=== PATIENT | female | born 1970 | race Caucasian/White ===

== ENCOUNTER 2016-09-24 12:19 | Emergency (ER) | payer MEDICAID ==
[~2016-09-24] VITALS: Wt 63.5 kg
[~2016-09-24 12:19] MED LIST: GLYB2.5T; INSU100V14; NPH,3INS5; PREN1TAB49; SS
[2016-09-24] MEDS ORDERED: ONDANSETRON (ODT) 4 MG TAB ODT STA (12:55)
--- NOTE | 2016-09-24 12:58 | ERD ---
ER Documentation Chief Complaint Date/Time DATE: 09/24/16 TIME: 12:57 Chief Complaint ruq pain HPI 46-year-old female with a history of type 2 diabetes comes emergency room with 3 day history of right upper quadrant abdominal pain that radiates from epigastrium. She states it is on and off, pressure-like, worse at nighttime after dinner. She has had some nonbloody nonbilious episodes of nausea vomiting for the past 2 days. She denies fevers or chills. ROS All systems reviewed and are negative except as per history of present illness. Medications Home Meds Active Scripts Omeprazole* (Omeprazole*) 20 Mg Capsule.dr, 20 MG PO DAILY, #30 Prov:LIBBY SUNG PA-C 09/24/16 Ranitidine Hcl* (Zantac*) 150 Mg Tablet, 150 MG PO BID Y for EPIGASTRIC PAIN, # 30 TAB Prov:LIBBY SUNG PA-C 09/24/16 Reported Medications Nph, Human Insulin Isophane (Humulin N) 100 Units/Ml Pen 02/04/10 Insulin Regular, Human (Humulin R) 100 Units/Ml Vial 02/04/10 Nph, Human Insulin Isophane (Humulin N) 100 Units/Ml Pen 02/04/10 Insulin Human Regular (Novolin-R U-100) 100 Unit/Ml Soln 02/04/10 Glyburide* (Diabeta*) 2.5 Mg Tablet 02/04/10 Glyburide* (Diabeta*) 2.5 Mg Tablet 02/04/10 Vits W-Ca,Fe,Fa(<1MG) () 1 Tab Tablet 02/04/10 Allergies Allergies: Coded Allergies: No Known Drug Allergy (Verified Allergy, Unknown, 10/05/13) PMhx/Soc Hx Alcohol Use: No Hx Substance Use: No Hx Tobacco Use: No Physical Exam Vitals Vital Signs Date Time Temp Pulse Resp B/P Pulse Ox O2 Delivery O2 Flow Rate FiO2 09/24/16 12:27 98.9 87 20 156/79 99 Physical Exam General: Well-developed, well-nourished. The patient appears in no acute distress. HEENT: Head is normocephalic, atraumatic. No scleral icterus. Neck: Supple. Nontender. Lungs: Clear to auscultation. Normal air movement. Heart: Regular rate and rhythm. S1 and S2 are normal. No murmurs, gallops, or rubs. Abdomen: Soft, 1+ tenderness in the epigastric region, there is mild tenderness in right upper quadrant, no Wisdom sign nondistended. Bowel sounds are normoactive. No hepatosplenomegaly. No tenderness to McBurney's point. Extremities: No clubbing or cyanosis. Normal pulses. Moving extremities x 4. No weakness. Neurologic: Alert and oriented 3. No focal deficits. Skin: Normal turgor. No rash or lesions. Result Diagram: 09/24/16 1308 09/24/16 1308 Results 24 hrs Laboratory Tests Test 09/24/16 13:05 09/24/16 13:08 Urine Color LT. YELLOW Urine Clarity CLEAR Urine pH 5.5 Urine Specific [place] 1.010 Urine Ketones NEGATIVE Urine Nitrite NEGATIVE Urine Bilirubin NEGATIVE Urine Urobilinogen 0.2 E.U./dL Urine Leukocyte Esterase NEGATIVE Urine Hemoglobin NEGATIVE Urine Glucose >=1000% Urine Total Protein NEGATIVE White Blood Count 10.910^3/ul Red Blood Count 4.4110^6/ul Hemoglobin 12.0g/dl Hematocrit 36.8% Mean Corpuscular Volume 83.4fl Mean Corpuscular Hemoglobin 27.2pg Mean Corpuscular Hemoglobin Concent 32.6g/dl Red Cell Distribution Width 14.2% Platelet Count 92132^3/UL Mean Platelet Volume 10.7fl Neutrophils % 64.0% Lymphocytes % 28.3% Monocytes % 6.0% Eosinophils % 0.7% Basophils % 0.5% Nucleated Red Blood Cells % 0.0/100WBC Neutrophils # 7.010^3/ul Lymphocytes # 3.110^3/ul Monocytes # 0.710^3/ul Eosinophils # 0.110^3/ul Basophils # 0.110^3/ul Nucleated Red Blood Cells # 0.010^3/ul Sodium Level 138mmol/L Potassium Level 4.0mmol/L Chloride Level 102mmol/L Carbon Dioxide Level 24mmol/L Anion Gap 16 Blood Urea Nitrogen 11mg/dl Creatinine 0.50mg/dl Glucose Level 298mg/dl Calcium Level 9.4mg/dl Total Bilirubin 0.2mg/dl Direct Bilirubin 0.00mg/dl Indirect Bilirubin 0.2mg/dl Aspartate Amino Transf (AST/SGOT) 20IU/L Alanine Aminotransferase (ALT/SGPT) 37IU/L Alkaline Phosphatase 91IU/L Total Protein 7.8g/dl Albumin 4.9g/dl Globulin 2.90g/dl Albumin/Globulin Ratio 1.68 Lipase 62U/L Current Medications Medications (Trade) Dose Ordered Sig/Shawn Route PRN Reason Start Time Stop Time Status Last Admin Dose Admin Acetaminophen/ Hydrocodone Bitart (Milton (5/325)) 1 tab ONCE ONCE PO 09/24/16 13:00 09/24/16 13:01 DC 09/24/16 13:46 Ondansetron HCl (Zofran Odt) 4 mg ONCE STAT ODT 09/24/16 12:55 09/24/16 12:57 DC 09/24/16 13:46 DIAGNOSTIC IMAGING REPORT Patient: MARTINEZ MONTEMAYOR : 1970 Age: 46 Sex: F MR #: [id number] DOS: 09/24/16 1255 Ordering MD: LIBBY SUNG PA-C Location: [facility] Room/Bed: PROCEDURE: US Abdomen (Right upper quadrant) CLINICAL INDICATION: Abdominal pain. TECHNIQUE: Multiple real-time longitudinal and transverse images were acquired of the patient's right upper quadrant utilizing a curved array transducer. COMPARISON: CT, 10/05/2013. FINDINGS: Liver demonstrates diffuse increase in parenchymal echogenicity. No focal liver mass. Portal vein demonstrates hepatopetal flow. Gallbladder is normal. There are no gallstones. There is no gallbladder wall thickening or pericholecystic fluid. No intra- or extrahepatic biliary dilation. Pancreas is partially visualized and grossly unremarkable. Right kidney demonstrates no hydronephrosis or nephrolithiasis. No ascites. Proximal aorta and IVC are unremarkable. MEASUREMENTS: Liver: 16.6 cm Common Duct: 0.3 cm Right Kidney: 10.6 cm IMPRESSION: 1. Hepatic steatosis, at least moderate in grade. 2. Otherwise, unremarkable examination. RPTAT: EE .Gregory Hughes MD, Date Time Electronically viewed and signed by .Gregory Hughes MD, on 09/24/2016 13:52 Procedures/MDM ED course: Labs and urine obtained. She was medicated with Milton and Zofran. 46 yo female comes in with epigastric abdominal pain, 5 days. She describes as epigastric pain as pressure-like, radiates to right upper quadrant. No evidence of acute choledocholithiasis, cholecystitis, acute pancreatitis. Abdominal ultrasound was performed, there is evidence of hepatic steatosis however no evidence of gallstones, acute cholecystitis. Lipase is normal, there is no transaminitis. Urine was also normal. She is given [place] and Zofran emergency department serial abdominal examinations were done and the patient is resting comfortably. She is to follow-up with her primary care doctor regarding steatosis, dietary changes were advised. Patient's blood pressure was elevated (>120/80) but appears stable without evidence of hypertension emergency or urgency. The patient was counseled about the risks of hypertension and urged to pursue outpatient monitoring and therapy within a week with their primary care physician. Departure Diagnosis: Primary Impression: Abdominal pain Additional Impression: Hepatic steatosis Condition: Good LIBBY SUNG PA-C Sep 24, 2016 12:58
[2016-09-24] MEDS ORDERED: HYDROCODONE/APAP (5/325) TAB PO ONE (13:00)
[2016-09-24 13:20] LABS: ADD SCAN DIFF NO
[2016-09-24 13:26] LABS: BASOPHIL # 0.1 10^3/ul (0.0-0.1); BASOPHILS % 0.5 % (0.0-2.0); EOSINOPHILS # 0.1 10^3/ul (0.0-0.5); EOSINOPHILS % 0.7 % (0.0-7.0); HEMATOCRIT 36.8 % (37.0-47.0); LYMPHOCYTES # 3.1 10^3/ul (0.8-2.9); LYMPHOCYTES % 28.3 % (15.0-51.0); MEAN CORPUSCULAR HEMOGLOBIN 27.2 pg (29.0-33.0); MEAN CORPUSCULAR HGB CONC 32.6 g/dl (32.0-37.0); MEAN CORPUSCULAR VOLUME 83.4 fl (82.0-101.0); MEAN PLATELET VOLUME 10.7 fl (7.4-10.4); MONOCYTE # 0.7 10^3/ul (0.3-0.9); PLATELET COUNT 364 10^3/UL (140-415); RED BLOOD COUNT 4.41 10^6/ul (4.20-5.40); RED CELL DISTRIBUTION WIDTH 14.2 % (11.5-14.5); WHITE BLOOD COUNT 10.9 10^3/ul (4.8-10.8)
[2016-09-24 13:29] LABS: ADD UMIC NO; URINE BILIRUBIN (Dip) NEGATIVE (NEGATIVE); URINE BLOOD (Dip) NEGATIVE (NEGATIVE); URINE COLOR LT. YELLOW (YELLOW); URINE GLUCOSE (Dip) >=1000 % (NEGATIVE); URINE KETONES (Dip) NEGATIVE (NEGATIVE); URINE LEUKOCYTE ESTERASE (Dip) NEGATIVE (NEGATIVE); URINE NITRITE (Dip) NEGATIVE (NEGATIVE); URINE TOTAL PROTEIN (Dip) NEGATIVE (NEGATIVE); URINE UROBILINOGEN (Dip) 0.2 E.U./dL (0.1-1.0)
--- NOTE | 2016-09-24 13:47 | RADRPT ---
PROCEDURE: US Abdomen (Right upper quadrant) CLINICAL INDICATION: Abdominal pain. TECHNIQUE: Multiple real-time longitudinal and transverse images were acquired of the patient's ri ght upper quadrant utilizing a curved array transducer. COMPARISON: CT, 10/05/2013. FINDINGS: Liver demonstrates diffuse increase in parenchymal echogenicity. No focal liver mass. Portal vein demonstrates hepatopetal flow. Gallbladder is normal. There are no gallstones. There is no gallbladder wall thickening or pericho lecystic fluid. No intra- or extrahepatic biliary dilation. Pancreas is partially visualized and grossly unremarkable. Right kidney demonstrates no hydronephrosis or nephrolithiasis. No ascites. Proximal aorta and IVC are unremarkable. MEASUREMENTS: Liver: 16.6 cm Common Duct: 0.3 cm Right Kidney: 10.6 cm IMPRESSION: 1. Hepatic steatosis, at least moderate in grade. 2. Otherwise, unremarkable examination. RPTAT: EE .Gregory Hughes MD, MD Date Time Electronically viewed and signed by .Gregory Hughes MD, on 09/24/2016 13:52 .C/
[2016-09-24 13:50] LABS: ALBUMIN 4.9 g/dl (3.3-4.9); ALBUMIN/GLOBULIN RATIO 1.68; BILIRUBIN,INDIRECT 0.2 mg/dl (0-1.1); BILIRUBIN,TOTAL 0.2 mg/dl (0.2-1.3); CALCIUM 9.4 mg/dl (8.4-10.2); CREATININE 0.5 mg/dl (0.44-1.00); TOTAL PROTEIN 7.8 g/dl (6.1-8.1)
[2016-09-24] MEDS ORDERED: OMEP20CA16 PO (13:56)
[2016-09-24] MEDS ORDERED: RANI150T9 PO (13:56)
== END 2016-09-24 14:08 | disposition home or self-care (01) ==
LOC: FTE 12:19
DX: R10.11 Right upper quadrant pain (principal); R10.13 Epigastric pain; K76.0 Fatty (change of) liver, not elsewhere classified; R11.2 Nausea with vomiting, unspecified; E11.9 Type 2 diabetes mellitus without complications; Z79.4 Long term (current) use of insulin; Z79.84 Long term (current) use of oral hypoglycemic drugs
CPT/HCPCS: 76705; 80053; 81003; 83690; 85025; Z7502; Z7610